=== PATIENT | female | born 1950 | race Caucasian/White ===

== ENCOUNTER → 2016-08-14 | Outpatient (CLI) | payer OTHER ==
[~2016-08-14] VITALS: Ht 165.1 cm; Wt 112.0 kg
[~2016-08-14] MED LIST: CYANOCOBALAM1000 MCG PO; HYDROCHLOROTHIA25 MG PO; LANTUS 10100 UNITS/ SC; LO-DOSE ASPIRIN81 M2 PO; MEVACOR10 M1 PO; ONE DAILY WOME1 EACH PO; PROZAC20 MG PO; SINGULAIR10 MG PO; TOPROL XL25 MG PO; VOLTAREN75 MG PO; ZESTRIL2.5 MG PO
[2016-08-14 09:04] LABS: POINT-OF-CARE METER ID UU13113694
== END | disposition home or self-care (01) ==
LOC: AMB 08:17
PROVIDERS: Internal Medicine
DX: Z12.11 Encounter for screening for malignant neoplasm of colon (principal); K92.1 Melena; K29.70 Gastritis, unspecified, without bleeding; I45.10 Unspecified right bundle-branch block; Z93.2 Ileostomy status; J45.909 Unspecified asthma, uncomplicated; E78.5 Hyperlipidemia, unspecified; E11.9 Type 2 diabetes mellitus without complications; I10 Essential (primary) hypertension; Z82.49 Family history of ischemic heart disease and other diseases of the circulatory system; Z83.3 Family history of diabetes mellitus; Z82.5 Family history of asthma and other chronic lower respiratory diseases; Z79.4 Long term (current) use of insulin; Z79.82 Long term (current) use of aspirin; Z79.899 Other long term (current) drug therapy; Z88.0 Allergy status to penicillin; Z87.891 Personal history of nicotine dependence
CPT/HCPCS: 82948; 88305; 88342 TC; 93005; J3010